=== PATIENT | female | born 1995 | race Two or more races ===

== ENCOUNTER 2022-10-29 09:21 | Emergency (ER) | payer MEDICAID ==
[~2022-10-29] VITALS: Ht 162.6 cm; Wt 71.6 kg
[2022-10-29 10:20] VITALS: BP 112/63
[2022-10-29 10:24] LABS: Basophils # (auto) 0 10 ^3/uL (0-0.2); Basophils % (auto) 0.5 % (0.0-2.0); Eosinophils # (auto) 0.3 10 ^3/uL (0-0.8); Hematocrit 41.3 % (36.0-46.0); Hemoglobin 13.9 g/dL (12.2-16.2); Lymphocytes # (auto) 1.5 10 ^3/uL (0.4-5.4); Lymphocytes % (auto) 22.3 % (10.0-50.0); Mean Corpuscular Hemoglobin 29.5 pg (28.0-32.0); Mean Corpuscular Hgb Conc. 33.6 g/dL (32.0-36.0); Mean Corpuscular Volume 87.6 fL (80.0-100.0); Monocytes # (auto) 0.3 10 ^3/uL (0-1.3); Neutrophils # (auto) 4.5 10 ^3/uL (1.6-8.6); Neutrophils % (auto) 68.2 % (37.0-80.0); Red Blood Cells 4.71 10^6/uL (4.0-5.20); Red Cell Distribution Width 13.7 % (11.8-14.3); White Blood Cell 6.6 10^3/uL (4.4-10.8)
[2022-10-29 10:45] LABS: Urine Bacteria NONE SEEN /hpf (None Seen); Urine Blood Negative /uL (Negative); Urine Mucus FEW (None Seen); Urine Specific Gravity 1.019 (1.001-1.035); Urine WBC 3 /hpf (0 - 5)
[2022-10-29] MEDS ORDERED: ONDANSETRON ODT 4 MG TAB PO ONE (11:00)
[2022-10-29] MEDS ORDERED: KETOROLAC TROMETH 60MG/2ML VIAL IM ONE (11:00)
[2022-10-29] MEDS ORDERED: ONDA-144 PO (11:41)
[2022-10-29] MEDS ORDERED: IBUP800T27 PO (11:41)
[2022-10-29 12:20] LABS: Chloride 105 mmol/L (98-107); Potassium 3.8 mmol/L (3.5-5.1); Sodium 140 mmol/L (136-145)
[2022-10-29 12:29] LABS: Albumin 3.8 g/dL (3.4-5.0); Alkaline Phosphatase 54 U/L (45-117); Anion Gap 9 (5-15); Aspartate Aminotransferase 10 U/L (15-37); BUN/Creatinine Ratio 12.3; Bilirubin, Total 0.4 mg/dL (0.2-1.0); Blood Urea Nitrogen 7 mg/dL (7-18); Calcium 9.5 mg/dL (8.5-10.1); Carbon Dioxide 26 mmol/L (21-32); GFR African American 162 mL/min; GFR Non-African American 134 mL/min; Glucose 84 mg/dL (74-106); Lipase 282 U/L (73-393)
[2022-10-29 12:38] LABS: Alanine Aminotransferase 16 U/L (13-56)
== END 2022-10-29 11:46 | disposition home or self-care (01) ==
LOC: ER 09:21
DX: R10.13 Epigastric pain (principal); F41.9 Anxiety disorder, unspecified
CPT/HCPCS: 36415; 74176; 80053; 81001; 81025; 83690; 85025; 96372; 99285; J1885; Q0162